=== PATIENT | female | born 1950 | race African-American/Black ===

== ENCOUNTER → 2018-05-14 | Outpatient (CLI) | payer MEDICARE, BC ==
[2018-05-15 13:25] LABS: Anion Gap 4 mmol/L; Blood Urea Nitrogen 16 mg/dL (7-17); Carbon Dioxide 30 mmol/L (22-30); Chloride 108 mmol/L (98-107); Glucose 94 mg/dL (74-99); HCT 40.5 % (34.0-46.0); MCH 30.7 pg (25.0-35.0); MCV 95.8 fL (80.0-100.0); Mean Platelet Volume 9.1; Platelet Count 290 k/uL (150-450); Potassium 4.6 mmol/L (3.5-5.1); RBC 4.23 m/uL (3.80-5.40); Sodium 142 mmol/L (137-145); WBC 4.9 k/uL (3.8-10.6)
== END | disposition home or self-care (01) ==
LOC: LABPAT 12:00 → EDSTATUS 05-15 11:15 → LABPRL 05-15 12:10
PROVIDERS: ATTEND Internal Medicine Interventional Cardiology
DX: Z01.812 Encounter for preprocedural laboratory examination (principal); I42.0 Dilated cardiomyopathy; E78.01 Familial hypercholesterolemia
CPT/HCPCS: 80051; 82565; 82947; 84520; 85027

== ENCOUNTER → 2018-05-17 | Day surgery (SDC) | payer MEDICARE, BC ==
[2018-05-13 10:43] VITALS: BMI 24.5
[~2018-05-17] MED LIST: ALPRAZolam 0.25 MG TAB PO PRN; ALPRAZolam 0.5 MG TAB PO PRN; ASPIRIN 325 MG TAB PO STA; ATORVASTATIN 80 MG TAB PO STA; HEPARIN SODIUM 1,000 UN/ML (10ML VL) IV ONE; IOPAMIDOL-370 125ML BTL INJ ONE; LIDOCAINE 1% INJ 10MG/ML (20 ML MDV) SQ ONE; MIDAZOLAM 2 MG/2 ML VIAL IV ONE; NITROGLYCERIN SL TABS 0.4 MG TAB SUBLINGUAL PRN; RX INFO: IV CONTRAST WAS GIVEN 1 EACH MISC MISCELLANE PRN; SODIUM CHLORIDE 0.9% 1,000 ML IV SCH; SODIUM CHLORIDE 0.9% 1,000 ML in EMPTY BAG 1 BAG IV ONE
[2018-05-17 07:11] VITALS: TEMP 97.7
[2018-05-17] MEDS: VERAPAMIL SYRINGE (5 MG/10 ML) INTRAARTER ONE ×2 (08:51→09:02)
--- NOTE | 2018-05-17 09:33 | CC ---
CARDIAC CATHETERIZATION REPORT DATE OF SERVICE: 05/17/2018 PERFORMING PHYSICIAN: Kieran Lange MD, [employer]. PROCEDURE PERFORMED: 1. Selective right and left coronary angiogram. 2. Left heart catheterization. 3. Left ventriculography. INDICATION: This is a pleasant 67-year-old female patient who sees Dr. Benton in the office as an outpatient who was diagnosed recently with cardiomyopathy. The heart catheterization is to evaluate for coronary artery disease as an etiology for her cardiomyopathy. APPROACH: Right radial artery. COMPLICATION: None. LEVEL OF SEDATION: Moderate with sedation length of 18 minutes. PROCEDURE DESCRIPTION: After obtaining an informed consent, the patient was brought to the cardiac recyclable products sorter. The right radial artery was cannulated using micropuncture technique and a micropuncture wire passed easily, then I placed a 6-Thai sheath in the right radial artery. After that, I gave the patient 2 mg of verapamil IA and 6000 units of heparin IV. Selective right and left coronary angiogram performed using JR4 and JL3.5 catheters. Left heart catheterization was performed using 6-Thai pigtail catheter. The procedure was completed without any complication. CORONARY ANGIOGRAM: 1. The right coronary artery is a large caliber vessel. It is a dominant vessel. It is angiographically normal. It distally bifurcates into PDA and PLV branches, both are angiographically normal. 2. The left main is angiographically normal, it bifurcates into the left circumflex and left anterior descending artery. 3. Left circumflex is a large caliber vessel. It is a nondominant vessel. It is angiographically normal. In the midportion gives rise into the first and second OM branch, both are angiographically normal. 4. The LAD, the proximal LAD is angiographically normal. The mid LAD is normal and gives rise into first and second diagonal branches, both appeared to be angiographically normal. The LAD distally is normal as well. HEMODYNAMICS: The left ventricle end-diastolic pressure was 8 mmHg and no gradient was identified across the aortic valve. Left ventriculography was performed in the SLAUGHTER projection and using a power injection. Left ventricular systolic function is impaired with EF around 40%. CONCLUSION: 1. Normal coronary angiogram. 2. Nonischemic cardiomyopathy with ejection fraction of 40%. POSTPROCEDURE MANAGEMENT: Medical treatment. MMODL / IJN: [id number] /
--- NOTE | 2018-05-17 09:33 | LTR ---
DATE OF SERVICE: 05/17/2018 RE: Geeta Ervin Dear Dr. Bowser; I did perform a heart catheterization for a mutual patient between you and Dr. Benton with the name of Geeta Ervin and that revealed normal coronaries. Thank you for allowing us to participate in her care and please do not hesitate to call us questions or concern. Sincerely, MD THEODORE Costa / PEDRO LUIS: [id number] /
[2018-05-17 11:43] VITALS: RESP 16
[2018-05-17 11:44] VITALS: BP 126/74; PULSE 66
== END | disposition home or self-care (01) ==
LOC: CATHCVL 06:31
PROVIDERS: ATTEND Internal Medicine Interventional Cardiology
DX: I42.8 Other cardiomyopathies (principal); E78.01 Familial hypercholesterolemia; R06.09 Other forms of dyspnea; Z79.899 Other long term (current) drug therapy; Z79.891 Long term (current) use of opiate analgesic
CPT/HCPCS: 99152; 93458; C1769; C1894; J2250; J2001; J1644; Q9967

== ENCOUNTER 2018-12-09 | Emergency (ER) | payer MEDICARE, BC ==
--- NOTE | 2018-12-09 14:44 | ED ---
Extremity Problem HPI - General Chief complaint: Extremity Problem,Nontraumatic Stated complaint: Left Arm Lump Time Seen by Provider: 12/09/18 14:23 Source: patient, RN notes reviewed, old records reviewed Mode of arrival: ambulatory Limitations: no limitations - History of Present Illness Initial comments: 68-year-old female presents emergency room today with family for concerns for a lump over her left arm. Patient reportedly without lunch today and developed a swelling in her left arm. She is not on blood thinners or any other history of trauma. Patient reports no pain. Patient states that the swelling seemed to come out of nowhere. She denies any scratches, or break skin. - Related Data Home Medications Medication Instructions Recorded Confirmed Aspirin [Adult Low Dose Aspirin EC] 81 mg PO DAILY 05/13/18 12/09/18 Carvedilol [Coreg] 3.125 mg PO BID 05/13/18 12/09/18 Losartan [Cozaar] 25 mg PO DAILY 05/13/18 12/09/18 Rosuvastatin [Crestor] 20 mg PO DAILY 05/13/18 12/09/18 Spironolactone [Aldactone] 25 mg PO DAILY 05/13/18 12/09/18 ALPRAZolam [Xanax] 0.5 mg PO BID PRN 12/09/18 12/09/18 Allergies Allergy/AdvReac Type Severity Reaction Status Date / Time No Known Allergies Allergy Verified 12/09/18 14:23 Review of Systems ROS Statement: Those systems with pertinent positive or pertinent negative responses have been documented in the HPI. ROS Other: All systems not noted in ROS Statement are negative. Past Medical History Past Medical History: Chest Pain / Angina, Hyperlipidemia Additional Past Medical History / Comment(s): shortness of breath with exertion, bladder leakage History of Any Multi-Drug Resistant Organisms: None Reported Past Surgical History: Appendectomy, Orthopedic Surgery, Tonsillectomy Additional Past Surgical History / Comment(s): lt foot surgery, great toe has plastic screw in place Past Anesthesia/Blood Transfusion Reactions: No Reported Reaction Past Psychological History: Anxiety Smoking Status: Never smoker Past Alcohol Use History: None Reported Past Drug Use History: None Reported - Past Family History Mother Family Medical History: No Reported History General Exam - General Exam Comments Initial Comments: 68-year-old female. Alert and oriented. No distress. Limitations: no limitations General appearance: alert, in no apparent distress Head exam: Present: atraumatic, normocephalic, normal inspection Eye exam: Present: normal appearance, PERRL, EOMI. Absent: scleral icterus, conjunctival injection, periorbital swelling ENT exam: Present: normal exam, mucous membranes moist Neck exam: Present: normal inspection. Absent: tenderness, meningismus, lymphadenopathy Respiratory exam: Present: normal lung sounds bilaterally. Absent: respiratory distress, wheezes, rales, rhonchi, stridor Cardiovascular Exam: Present: regular rate, normal rhythm, normal heart sounds. Absent: systolic murmur, diastolic murmur, rubs, gallop, clicks GI/Abdominal exam: Present: soft, normal bowel sounds. Absent: distended, tenderness, guarding, rebound, rigid Extremities exam: Present: normal inspection, full ROM, normal capillary refill, other (left forearm swelling, 2cm by 2cm. ). Absent: tenderness, pedal edema, joint swelling, calf tenderness Back exam: Present: normal inspection Neurological exam: Present: alert, oriented X3, CN II-XII intact Psychiatric exam: Present: normal affect, normal mood Skin exam: Present: warm Course Vital Signs 12/09/18 13:47 Temperature 98.3 F Pulse Rate 74 Respiratory 18 Rate Blood Pressure 131/67 O2 Sat by Pulse 99 Oximetry Medical Decision Making - Medical Decision Making 5-year-old female presents today for lunch manic left arm swelling. She has a 2 x 2 centimeter area of swelling. Patient this time as soft tissue swelling. Ultrasound was over the area and shows no sign of clot. Patient likely does have a intramuscular hematoma. Discussed following up with PCP. Discussed warm compresses over the area and anti-inflammatory medicine. Disposition Clinical Impression: Hematoma Disposition: HOME SELF-CARE Condition: Good Instructions (If sedation given, give patient instructions): Hematoma (ED) Additional Instructions: Follow-up with your primary care physician. Alternate between heat and ice over the area of swelling. Motrin and Tylenol for pain. Wear Nasir wrap. Return to the emergency department if any alarming signs or symptoms occur. Is patient prescribed a controlled substance at d/c from ED?: No Referrals: Aden Bowser MD [Primary Care Provider] - 1-2 days Time of Disposition: 14:44
== END 2018-12-09 14:55 | disposition home or self-care (01) ==
CPT/HCPCS: 99283

== ENCOUNTER → 2018-12-29 | Outpatient (CLI) | payer MEDICARE, BC ==
--- NOTE | 2018-12-29 11:00 | FL ---
EXAMINATION TYPE: FL barium swallow DATE OF EXAM: 12/29/2018 CLINICAL HISTORY: Dysphasia and hoarseness. TECHNIQUE: A double contrast esophagram is performed utilizing air and barium. A total of 26 second s of fluoroscopic time was utilized during procedure. 54 spot images are saved. COMPARISON: Prior esophagram December 26, 2014 FINDINGS: The esophagus shows satisfactory motility and emptying into the stomach. No fixed hiatal he rnia. No stricture or intraluminal mass. No diverticulum. No significant gastroesophageal reflux was seen during real time performance of this study. IMPRESSION: No significant abnormality is seen to account for patient's symptoms.
== END | disposition home or self-care (01) ==
LOC: RADUSWWP 09:44
PROVIDERS: ATTEND Otolaryngology
DX: R13.10 Dysphagia, unspecified (principal); R49.0 Dysphonia
CPT/HCPCS: 74220

== ENCOUNTER 2019-10-13 10:45 | Day surgery (SDC) | payer MEDICARE, BC ==
[2019-10-11 10:43] VITALS: BMI 25.9
[~2019-10-13 10:45] MED LIST changes: -ALPRAZolam 0.25 MG TAB PO PRN; -ALPRAZolam 0.5 MG TAB PO PRN; -ASPIRIN 325 MG TAB PO STA; -ATORVASTATIN 80 MG TAB PO STA; -HEPARIN SODIUM 1,000 UN/ML (10ML VL) IV ONE; -IOPAMIDOL-370 125ML BTL INJ ONE; +LIDOCAINE 1% (10MG/ML) FOR IV START INTRADERMA PRN; -LIDOCAINE 1% INJ 10MG/ML (20 ML MDV) SQ ONE; -MIDAZOLAM 2 MG/2 ML VIAL IV ONE; -NITROGLYCERIN SL TABS 0.4 MG TAB SUBLINGUAL PRN; -RX INFO: IV CONTRAST WAS GIVEN 1 EACH MISC MISCELLANE PRN; -SODIUM CHLORIDE 0.9% 1,000 ML IV SCH; -SODIUM CHLORIDE 0.9% 1,000 ML in EMPTY BAG 1 BAG IV ONE
[2019-10-13 11:30] VITALS: RESP 18; TEMP 97.6
[2019-10-13] MEDS: LACTATED RINGERS 1,000 ML IV SCH ×2 (11:43→11:44)
[2019-10-13] MEDS ORDERED: LIDOCAINE 1% INJ 10MG/ML (20 ML MDV) ONE (11:47)
[2019-10-13] MEDS ORDERED: PROPOFOL 10 MG/ML 20 ML VIAL IV ONE (11:47)
--- NOTE | 2019-10-13 12:06 | P.PCN ---
Date of Procedure: 10/13/19 Procedure(s) Performed: Brief history: Patient is a pleasant 69-year-old white female scheduled for an elective upper endoscopy as well as colonoscopy as a part of evaluation of epigastric/right upper quadrant abdominal pain and change in bowel habits for the last 1 year duration. Procedure performed: Esophagogastroduodenoscopy with biopsy Colonoscopy Preoperative diagnosis: Epigastric and right upper quadrant abdominal pain Change in bowel habits Anesthesia: MAC Procedure: After informed consent was obtained from the patient was brought into the endoscopy unit and IV sedation was administered by anesthesia under continuous monitoring. Initially upper endoscopy was done. The Olympus GF 160 video endoscope was inserted inserted into the mouth and esophagus intubated without any difficulty and was gradually advanced into the stomach and duodenum and carefully examined. The bulb and second part of the duodenum appeared normal. Abscesses were done from the duodenum to rule out celiac disease. The scope was then withdrawn into the stomach adequately insufflated with air and upon careful examination the antrum had mild gastritis. Biopsies were done from this area. The body, cardia and fundus appeared normal. The scope was then withdrawn into the esophagus. Small hiatal hernia noted. The GE junction was located at 40 cm to the incisors. It appeared regular with no erythema erosions or ulcerations. Rest of the esophagus appeared normal. Patient tolerated the procedure well. At this time the patient continued to remain sedation. Initial digital rectal examination was normal. Olympus CF 160 video colonoscope was then inserted into the rectum and gradually advanced to the cecum without any difficulty. Careful examination was performed as the scope was gradually being withdrawn. The prep was excellent. The cecum, ascending colon, transverse colon, descending colon, sigmoid colon and rectum appeared normal. Scattered sigmoid diverticulosis seen. Retroflexion was performed in the rectum and no lesions were noted. Patient tolerated the procedure well. Impression: 1. Upper Endoscopy revealed mild antral gastritis and a small hiatal hernia 2. Colonoscopy revealed scattered sigmoid diverticulosis and no evidence of colorectal neoplasia Recommendations: Findings of this examination were discussed with the patient as well as her family. She was advised to follow with the biopsy results. She'll be seen in office in 2-3 weeks.
[2019-10-13] MEDS ORDERED: HYDROcodone/APAP 5-325MG 1 EACH TAB ONE (12:36)
[2019-10-13 13:04] VITALS: BP 150/67; PULSE 64
== END 2019-10-13 13:14 | disposition home or self-care (01) ==
LOC: ORWHC2ENDO 10:45
PROVIDERS: ATTEND Internal Medicine Gastroenterology
DX: K57.30 Diverticulosis of large intestine without perforation or abscess without bleeding (principal); K29.50 Unspecified chronic gastritis without bleeding; K21.9 Gastro-esophageal reflux disease without esophagitis; K44.9 Diaphragmatic hernia without obstruction or gangrene; I25.10 Atherosclerotic heart disease of native coronary artery without angina pectoris; I10 Essential (primary) hypertension; E78.5 Hyperlipidemia, unspecified; Z79.82 Long term (current) use of aspirin; Z79.899 Other long term (current) drug therapy
CPT/HCPCS: 88305; 45378; 43239; J2001; J2704

== ENCOUNTER → 2019-11-03 | Outpatient (CLI) | payer MEDICARE, BC ==
--- NOTE | 2019-11-03 10:13 | CT ---
EXAMINATION TYPE: CT abdomen wo/w con DATE OF EXAM: 11/03/2019 COMPARISON: None HISTORY: Rt sided pain, epigastric pain CT DLP: 589.5 mGycm CONTRAST: CT scan of the abdomen is performed with Oral Contrast and without and with IV Contrast, patient inje cted with 100 mL of Isovue 300. FINDINGS: LUNG BASES-: No visible nodule. No infiltrate. LIVER/GB: No calcified gallstones. No space occupying hepatic lesion. Biliary tree is of normal ca liber. PANCREAS: No inflammation. No distinct mass. SPLEEN: No splenic enlargement. No lesion seen. ADRENALS: No nodule. No thickening. KIDNEYS/BLADDER: No hydronephrosis. No nephrolithiasis. Parapelvic renal cysts noted. No solid clark l lesions detected. Urinary bladder grossly unremarkable. BOWEL: Normal appendix. Normal bowel caliber. No inflammation. LYMPH NODES: No greater than 1cm abdominal or pelvic lymph nodes are appreciated. AORTA: No significant abnormality. OSSEOUS STRUCTURES: No significant abnormality is seen. OTHER: No significant additional abnormality is seen. IMPRESSION: 1. No significant abnormality to account for the patient's symptoms.
== END | disposition home or self-care (01) ==
LOC: RADCTMAIN 08:31
PROVIDERS: ATTEND Internal Medicine Gastroenterology
DX: R10.9 Unspecified abdominal pain (principal)
CPT/HCPCS: 82565; 84520; 74170; 36415; Q9967

== ENCOUNTER → 2020-11-11 | Outpatient (CLI) | payer MEDICARE, BC ==
--- NOTE | 2020-11-11 12:59 | FL ---
Modified barium swallow. HISTORY: Dysphagia. Modified barium swallow was performed with the department of speech pathology. The patient was prese nted with various consistencies of barium. There is no evidence for aspiration or penetration. Full report is to follow from the department of speech pathology. Impression: Normal study.
== END | disposition home or self-care (01) ==
LOC: RADFLMAIN 10:51
PROVIDERS: ATTEND Otolaryngology
DX: R13.10 Dysphagia, unspecified (principal); R05 Cough
CPT/HCPCS: 74230

== ENCOUNTER → 2022-01-02 | Outpatient (CLI) | payer MEDICARE, BC ==
--- NOTE | 2022-01-03 02:44 | MR ---
EXAMINATION TYPE: MR shoulder LT wo con DATE OF EXAM: 01/02/2022 COMPARISON: None HISTORY: Shoulder pain Multiplanar multiecho imaging of the left shoulder without contrast The biceps tendon is intact. There is shoulder joint effusion. Subscapularis tendon is intact. There is some deformity of the anterior glenoid labrum which is thickened and partially . There is full-thickness vertical tear in the supraspinatus tendon at the top of the humeral head and best seen on the T2 sagittal images. The infraspinatus tendon is intact. No retraction of the tendon. No evidence of a fracture. Humeral head is intact. There is mild spurring at the AC joint. No subacr omial impingement. IMPRESSION: Shoulder joint effusion with anterior glenoid labral tear and slight deformity. Full-thickness tear of the supraspinatus tendon without retraction.
== END | disposition home or self-care (01) ==
LOC: RADMRIMAIN 10:43
PROVIDERS: ATTEND Orthopaedic Surgery
DX: M25.512 Pain in left shoulder (principal)

== ENCOUNTER 2022-03-04 06:47 | Day surgery (SDC) | payer MEDICARE, BC ==
[2022-03-02 09:28] VITALS: BMI 23.6
--- NOTE | 2022-03-03 13:12 | HP ---
HISTORY AND PHYSICAL Surgery is scheduled for 03/04/2022. HISTORY OF PRESENT ILLNESS: Geeta Ervin is a 71-year-old patient seen with progressive left shoulder pain. We discussed options for treatment, it showed post left shoulder arthroscopy. Consent was obtained. Medical and cardiac clearances were provided. PAST MEDICAL HISTORY: Hypertension, hyperlipidemia, cardiovascular disease. PAST SURGICAL HISTORY: Noncontributory. MEDICATIONS: 1. Carvedilol. 2. Losartan. 3. Rosuvastatin. 4. Spironolactone. 5. Aleve. 6. Aspirin. ALLERGIES: None. SOCIAL HISTORY: She denies tobacco use. PHYSICAL EVALUATION OF LEFT SHOULDER: Flexion is 40 degrees, abduction is 30 degrees. External rotation is 10 degrees with pain and weakness. Tenderness along the anterior lateral acromion rotator cuff insertion site. Impingement positive at 50 degrees. Drop-arm sign is positive. Distal neurovascular exam is intact. RADIOGRAPHS: Radiographs of the left shoulder revealed a type 2 acromion, evidence for acromioclavicular joint osteoarthritis and cystic changes of the tuberosity. MRI left shoulder revealed a rotator cuff tear and labral tear. IMPRESSION: 1. Left shoulder impingement with rotator cuff tear. 2. Left shoulder labral tear. 3. Left shoulder acromioclavicular joint osteoarthritis. 4. Hypertension. 5. Hyperlipidemia. PLAN: Left shoulder arthroscopy with subacromial decompression, arthroscopic rotator cuff repair and debridement. MMODL / IJN: [id number] /
[2022-03-04] MEDS ORDERED: ONDANSETRON 4 MG/2 ML VIAL IVP ONE (07:00)
[2022-03-04] MEDS ORDERED: LIDOCAINE 1% (10MG/ML) FOR IV START INTRADERMA PRN (07:00)
[2022-03-04] MEDS ORDERED: MIDAZOLAM 2 MG/2 ML VIAL IV PRN (07:00)
[2022-03-04] MEDS ORDERED: HYDROmorphone 0.5 MG/0.5 ML SYRINGE IVP PRN (07:00)
[2022-03-04] MEDS ORDERED: DEXAMETHASONE SOD PHOSPHATE 4 MG/ML 1 ML VIAL IV ONE (07:00)
[2022-03-04] MEDS: LACTATED RINGERS 1,000 ML IV SCH ×2 (07:16→08:27)
[2022-03-04 07:19] VITALS: TEMP 97
[2022-03-04] MEDS ORDERED: MIDAZOLAM 2 MG/2 ML VIAL IVP ONE (08:09)
[2022-03-04] MEDS ORDERED: fentaNYL (PF) 50 MCG/ML 2 ML AMP ONE (08:20)
[2022-03-04] MEDS ORDERED: MIDAZOLAM 2 MG/2 ML VIAL ONE (08:20)
[2022-03-04] MEDS ORDERED: PHENYLEPHRINE-0.9% NACL SYG 1,000 MCG/10 ML SYRINGE ONE (08:20)
[2022-03-04] MEDS ORDERED: LIDOCAINE 2% INJ 20 MG/ML (2 ML VIAL) ONE (08:20)
[2022-03-04] MEDS ORDERED: PROPOFOL 10 MG/ML 20 ML VIAL IV ONE (08:20)
[2022-03-04] MEDS ORDERED: ROPIVACAINE 5 MG/ML 30 ML VIAL ONE (08:20)
[2022-03-04] MEDS ORDERED: SUCCINYLCHOLINE CHLORIDE 200 MG/10 ML VIAL IV ONE (08:20)
[2022-03-04] MEDS ORDERED: LACTATED RINGERS 1,000 ML IV ONE (09:50)
[2022-03-04 10:06] VITALS: RESP 16
--- NOTE | 2022-03-04 10:09 | P.OP ---
Date of Procedure: 03/04/22 Preoperative Diagnosis: Left shoulder impingement Postoperative Diagnosis: 1. Left shoulder impingement 2. Left shoulder acromioclavicular joint osteoarthritis 3. Left shoulder adhesions 4. Left shoulder superficial labral tear Procedure(s) Performed: 1. Left shoulder arthroscopic subacromial decompression 2. Left shoulder arthroscopic Tiarra procedure 3. Left shoulder arthroscopic lysis adhesions 4. Left shoulder arthroscopic debridement labral tear Anesthesia: GETA, regional (Interscalene block) Surgeon: Ede Correa Estimated Blood Loss (ml): 8 Pathology: none sent Condition: stable Disposition: PACU Indications for Procedure: 71-year-old patient seen with persistent progressive left shoulder pain. After treatment options were discussed, she elected to proceed with arthroscopy. Operative Findings: See description of procedure Description of Procedure: Patient underwent an interscalene block by department of anesthesia. The patient was then taken to the operative suite. The patient underwent a general anesthetic by the department of anesthesia. The patient was placed into a lateral position and secured. There was appropriate padding of the bony prominence. Left shoulder was then prepped and draped in normal sterile orthopedic fashion. We placed the extremity in 10 pounds of longitudinal traction. A posterior incision was now made for a posterior working portal site. The trocar and cannula were inserted into the glenohumeral joint. Arthroscopy was initiated. Spinal needle was now inserted anteriorly, to ascertain the anterior working portal site. An incision was now made in that area, a trocar was inserted followed by a probe. There was some superficial tearing of the superior labrum. The biceps appeared intact. There was some moderate osteoarthritic changes. There were no osteochondral tears present. There were significant adhesions throughout the glenohumeral joint. I performed a moderate lysis of adhesions. I debrided the superficial labral tear. The residual labrum was stable. Instruments now removed from glenohumeral joint. Utilizing the posterior working portal site, the trocar and cannula were inserted into the subacromial space. Arthroscopy initiated. I made an incision 2 fingerbreadths lateral to the acromion. I introduced my trocar followed by my ArthroCare ablator. I now began ablating thick subacromial bursal tissue, which exposed the undersurface of the anterior acromion. There was diminished subacromial space. There was a very prominent anterior acromion. A motorized bur was introduced and a subacromial decompression was performed. I also excised some osteophytes off the inferior aspect of the distal clavicle. The AC joint was visualized and noted to be fairly arthritic. The motorized bur was introduced in the anterior portal site and a Tiarra procedure was performed without difficulty, decompressing the AC joint nicely. I turned my attention to the rotator cuff. I thoroughly probed the rotator cuff and noted no obvious te ars. Instruments now removed from the portal sites. All portal sites were approximated with nylon suture. Sterile dressings were applied followed by a shoulder sling. The patient was awakened, transferred to a bed, and taken to recovery in stable condition.
--- NOTE | 2022-03-04 10:32 | P.ANPRN ---
Procedure Note - Anesthesia - Nerve Block Performed Left Interscalene Time Out Performed: Yes (08:) Date of Procedure: 03/04/22 Procedure Start Time: Procedure Stop Time: Location of Patient: PreOp Indication: Acute Post-Operative Pain, Requested by Surgeon (Dr Correa) Sedation Type: Sedate with meaningful contact maintained Preparation: Sterile Prep Position: Supine Catheter: None Needle Types: Pajunk Needle Gauge: Other (see comment) (22g) Ultrasound used to visualize needle placement: Yes Ultrasound used to observe medication spread: Yes Injectate: 0.5% Ropivacaine (see comment for volume) (20cc) Blood Aspirated: No Pain Paresthesia on Injection Noted: No Resistance on Injection: Normal Image Stored and Saved: Yes Events: Uneventful and Well Tolerated
[2022-03-04 12:04] VITALS: BP 134/80; PULSE 74
== END 2022-03-04 12:52 | disposition home or self-care (01) ==
LOC: OR 06:47
PROVIDERS: ATTEND Orthopaedic Surgery
DX: M19.012 Primary osteoarthritis, left shoulder (principal); M75.02 Adhesive capsulitis of left shoulder; S43.492A Other sprain of left shoulder joint, initial encounter; G89.18 Other acute postprocedural pain; M75.42 Impingement syndrome of left shoulder; I10 Essential (primary) hypertension; E78.5 Hyperlipidemia, unspecified; I25.10 Atherosclerotic heart disease of native coronary artery without angina pectoris
CPT/HCPCS: 64415; 76942; 29824; 29826; J2250; J0330; J1100; J2405; J0690; J3010; J2795; J2370; J2704; J2001